=== PATIENT | male | born 1990 | race Two or more races ===

== ENCOUNTER 2017-01-02 13:02 | Outpatient (CLI) | payer MEDICAID | END 2017-01-02 13:03 | disposition home or self-care (01) | DX: Z20.2 Contact with and (suspected) exposure to infections with a predominantly sexual mode of transmission (principal) ==

== ENCOUNTER 2018-01-08 11:24 | Outpatient (CLI) | payer OTHER ==
[2018-01-08 18:24] LABS: ALBUMIN 4.5 g/dL (3.2-5.5); ALBUMIN/GLOBULIN RATIO 1.3 (1.0-2.2); ALKALINE PHOSPHATASE 66 IU/L (42-121); ALT ALANINE AMINOTRANSFERASE 18 IU/L (10-60); AST ASPARTATE AMINOTRANSFERASE 25 IU/L (10-42); BILIRUBIN,TOTAL 0.5 mg/dL (0.2-1.0); BUN - BLOOD UREA NITROGEN 16 mg/dL (6-20); CALCIUM 9.2 mg/dL (8.5-10.3); CARBON DIOXIDE - CO2 26 mmol/L (21-32); CHLORIDE 104 mmol/L (101-111); CHOL/HDL RATIO 3.2 (<5.0); CHOLESTEROL 183 mg/dL; CREATININE 0.7 mg/dL (0.6-1.2); GFR - MDRD 137 (>89); GLUCOSE 93 mg/dL (70-100); HDL CHOLESTEROL 57 mg/dL; LDL CHOLESTEROL,CALCULATED 117 mg/dL; LDL/HDL RATIO 2.1 (<3.6); SODIUM 137 mmol/L (135-145); VLDL CHOLESTEROL 9 mg/dL
== END 2018-01-08 11:25 | disposition home or self-care (01) ==
LOC: LAB.F 11:24
PROVIDERS: ATTEND Family Medicine
DX: E78.5 Hyperlipidemia, unspecified (principal)
CPT/HCPCS: 36415; 80053; 80061; 83721; 84443

== ENCOUNTER 2024-08-22 11:00 | Outpatient (CLI) | payer SELFPAY ==
--- NOTE | 2024-08-22 15:28 | XRAY Report ---
PROCEDURE: Chest 2V INDICATIONS: LEG EDEMA, BILATERAL TECHNIQUE: 2 views of the chest were acquired. COMPARISON: CT chest with contrast 08/22/2024 FINDINGS: Surgical changes and devices: Thoracic fusion hardware in place. Lungs and pleura: No pleural effusions or pneumothorax. Lungs are clear. Mediastinum: Mediastinal contours appear normal. Heart size is normal. Bones and chest wall: No suspicious bony lesions. Overlying soft tissues appear unremarkable. IMPRESSION: No acute cardiopulmonary process. Reviewed by: Flako Samayoa MD on 08/22/2024 3:27 PM PDT Approved by: Flako Samayoa MD on 08/22/2024 3:27 PM PDT Station ID: [id number]
== END 2024-08-22 11:15 | disposition home or self-care (01) ==
LOC: DI.N 11:00
PROVIDERS: ATTEND Physician Assistant
DX: R60.0 Localized edema (principal)

== ENCOUNTER 2024-08-22 11:15 | Outpatient (CLI) | payer SELFPAY ==
[2024-08-22 18:02] LABS: EOSINOPHILS # (AUTO) 0.1 10^3/uL (0.0-0.7); EOSINOPHILS % (AUTO) 1.5 %; HCT - HEMATOCRIT 38.5 % (42.0-52.0); HGB - HEMOGLOBIN 12.5 g/dL (14.0-18.0); LYMPHOCYTES # (AUTO) 0.8 10^3/uL (1.5-3.5); LYMPHOCYTES % (AUTO) 19.2 %; MEAN CORPUSCULAR HEMOGLOBIN 33.7 pg (27.0-31.0); MEAN CORPUSCULAR HGB CONC 32.5 g/dL (32.0-36.0); MEAN CORPUSCULAR VOLUME 103.8 fL (80.0-94.0); MEAN PLATELET VOLUME 11.1 fL (7.4-11.4); MONOCYTES # (AUTO) 0.4 10^3/uL (0.0-1.0); MONOCYTES % (AUTO) 10.2 %; NEUTROPHILS # (AUTO) 2.7 10^3/uL (1.5-6.6); NEUTROPHILS % (AUTO) 67.9 %; PLT - PLATELET COUNT 264 10^3/uL (130-450); RED BLOOD COUNT 3.71 10^6/uL (4.70-6.10); RED CELL DISTRIBUTION WIDTH 12.7 % (12.0-15.0)
[2024-08-22 18:23] LABS: ALBUMIN 4.4 g/dL (3.2-5.5); ALBUMIN/GLOBULIN RATIO 1.4 (1.0-2.2); BILIRUBIN,TOTAL 0.8 mg/dL (0.2-1.0); CREATININE 0.5 mg/dL (0.6-1.3); TOTAL PROTEIN 7.6 g/dL (6.4-8.9)
== END 2024-08-22 11:30 | disposition home or self-care (01) ==
LOC: LAB.N 11:15
PROVIDERS: ATTEND Physician Assistant
DX: R60.0 Localized edema (principal)
CPT/HCPCS: 36415; 80053; 83690; 83880; 85025

== ENCOUNTER 2024-08-22 13:02 | Outpatient (CLI) | payer SELFPAY | END 2024-08-22 23:59 | disposition critical access hospital (66) | LOC: EMS 13:02 | DX: R56.9 Unspecified convulsions (principal); F10.90 Alcohol use, unspecified, uncomplicated; R00.0 Tachycardia, unspecified | CPT/HCPCS: A0425; A0427 ==

== ENCOUNTER 2024-08-22 13:22 | Observation (INO) | payer SELFPAY ==
[2024-08-22] MEDS ORDERED: MIDAZOLAM 2 MG/2 ML VIAL ONE (13:32)
[2024-08-22] MEDS: MIDAZOLAM 10 MG/2 ML VIAL IVP STA ×2 (13:35→14:15)
--- NOTE | 2024-08-22 13:35 | ED Physician Documentation ---
PD HPI SEIZURE - Stated complaint Stated Complaint: SZ/WITHDRAWL ETOH - History obtained from History obtained from: EMS - History of Present Illness Timing - onset: Today PD PAST MEDICAL HISTORY - Past Medical History Musculoskeletal: Scoliosis, Chronic back pain - Past Surgical History Ortho: Spine surgery, Other - Present Medications Home Medications: Ambulatory Orders Medication Instructions Recorded Confirmed No Known Home Medications 08/22/24 08/22/24 - Allergies Allergies/Adverse Reactions: Allergies Allergy/AdvReac Type Severity Reaction Status Date / Time nickel [Nickel] Allergy Unknown Verified 08/22/24 13:56 PD ED PE NORMAL - Vitals Vital signs reviewed: Yes - General General: Other (intubated with symmetric lung sounds.). No: Well developed/nourished (moderately thin, low muscle mass. ) - HEENT HEENT: Other (swelling right occopital area, small dried blood on scalp. ) - Neck Neck: Supple, no meningeal sign, No adenopathy - Cardiac Cardiac: No: RRR (tachycardic but regular) - Respiratory Respiratory: Clear bilaterally - Abdomen Abdomen: Soft, Non distended - Derm Derm: Normal color, Warm and dry - Extremities Extremities: No deformity, No edema Results - Vitals Vitals: Vital Signs - 24 hr 08/22/24 08/22/24 08/22/24 13:22 13:26 13:36 Temperature 36.4 C L Heart Rate 105 H 108 H 120 H Respiratory 17 16 Rate Blood Pressure 126/65 126/65 O2 Saturation 99 100 08/22/24 08/22/24 08/22/24 13:57 14:06 14:16 Temperature 36.8 C Heart Rate 114 H 106 H 123 H Respiratory 17 14 15 Rate Blood Pressure 118/71 127/82 H O2 Saturation 99 100 100 08/22/24 08/22/24 08/22/24 14:20 15:00 15:30 Temperature 37 C Heart Rate 103 H 114 H 123 H Respiratory 14 16 18 Rate Blood Pressure 124/79 156/116 H 164/119 H O2 Saturation 100 100 100 Oxygen O2 Source Mechanical ventilator - EKG (time done) 1354 EKG releavant findings:: EKG personally interpreted by author of this note. Relevant findings are: Rate: Rate (enter#) (118), Tachy Rhythm: Sinus tachycardia Morrice: Normal Intervals: Prolonged QT Ischemia: Normal ST segments. No: ST elevation c/w ischemia, ST depression - Labs Labs: Laboratory Tests 08/22/24 08/22/24 08/22/24 13:37 13:37 13:37 WBC 5.7 RBC 3.45 L Hgb 12.0 L Hct 36.9 L MCV 107.0 H MCH 34.8 H MCHC 32.5 RDW 12.8 Plt Count 248 MPV 9.7 Neut # (Auto) 3.6 Lymph # (Auto) 1.6 [place] # (Auto) 0.4 Eos # (Auto) 0.0 Baso # (Auto) 0.0 Absolute Nucleated RBC 0.00 Nucleated RBC % 0.0 Sodium 135 Potassium 3.9 Chloride 102 Carbon Dioxide 8 L* Anion Gap 25.0 H BUN 7 Creatinine 0.8 Estimated GFR (MDRD) 112 Glucose 169 H Lactic Acid > 10.0 H* Calcium 8.5 Magnesium 1.9 Total Bilirubin 0.5 AST 331 H ALT 113 H Alkaline Phosphatase 166 H Total Creatine Kinase 102 Total Protein 6.8 Albumin 4.3 Globulin 2.5 Albumin/Globulin Ratio 1.7 Lipase 32 Vitamin B12 447 Folate 3.9 L TSH 4.61 Urine Color Urine Clarity Urine pH Ur Specific Miles Urine Protein Urine Glucose (UA) Urine Ketones Urine Occult Blood Urine Nitrite Urine Bilirubin Urine Urobilinogen Ur Leukocyte Esterase Urine RBC Urine WBC Ur Squamous Epith Cells Urine Bacteria Urine Casts Urine Mucus Ur Microscopic Review Urine Culture Comments Nasal Adenovirus (PCR) Nasal B. parapertussis DNA (PCR) Nasal Coronavir 229E PCR Nasal Coronavir HKU1 PCR Nasal Coronavir NL63 PCR Nasal Coronavir OC43 PCR Nasal Enterovir/Rhinovir PCR Nasal Influenza B PCR Nasal Influenza A PCR Nasal Parainfluen 1 PCR Nasal Parainfluen 2 PCR Nasal Parainfluen 3 PCR Nasal Parainfluen 4 PCR Nasal RSV (PCR) Nasal B.pertussis DNA PCR Nasal C.pneumoniae (PCR) Dandre Human Metapneumo PCR Nasal M.pneumoniae (PCR) Nasal SARS-CoV-2 (PCR) Salicylates < 1.5 Urine Opiates Screen Ur Buprenorphine Scrn Ur Oxycodone Screen Urine Methadone Screen Acetaminophen 2.5 Ur Barbiturates Screen Ur Tricyclics Screen Ur Phencyclidine Scrn Ur Amphetamine Screen U Methamphetamines Scrn U Benzodiazepines Scrn Urine Cocaine Screen U Cannabinoids Screen Ur Drug Screen Comment Ethyl Alcohol < 10.0 08/22/24 08/22/24 13:45 14:00 WBC RBC Hgb Hct MCV MCH MCHC RDW Plt Count MPV Neut # (Auto) Lymph # (Auto) [place] # (Auto) Eos # (Auto) Baso # (Auto) Absolute Nucleated RBC Nucleated RBC % Sodium Potassium Chloride Carbon Dioxide Anion Gap BUN Creatinine Estimated GFR (MDRD) Glucose Lactic Acid Calcium Magnesium Total Bilirubin AST ALT Alkaline Phosphatase Total Creatine Kinase Total Protein Albumin Globulin Albumin/Globulin Ratio Lipase Vitamin B12 Folate TSH Urine Color LIGHT YELLOW Urine Clarity HAZY Urine pH 5.5 Ur Specific Miles >=1.030 H Urine Protein 100 H Urine Glucose (UA) 100 H Urine Ketones NEGATIVE Urine Occult Blood MODERATE H Urine Nitrite NEGATIVE Urine Bilirubin NEGATIVE Urine Urobilinogen 0.2 (NORMAL) Ur Leukocyte Esterase NEGATIVE Urine RBC 0-5 Urine WBC 0-3 Ur Squamous Epith Cells FEW Squamous Urine Bacteria Few Urine Casts 0-2 WBC Casts Urine Mucus Few Strands Ur Microscopic Review INDICATED Urine Culture Comments NOT INDICATED Nasal Adenovirus (PCR) NOT DETECTED Nasal B. parapertussis DNA (PCR) NOT DETECTED Nasal Coronavir 229E PCR NOT DETECTED Nasal Coronavir HKU1 PCR NOT DETECTED Nasal Coronavir NL63 PCR NOT DETECTED Nasal Coronavir OC43 PCR NOT DETECTED Nasal Enterovir/Rhinovir PCR NOT DETECTED Nasal Influenza B PCR NOT DETECTED Nasal Influenza A PCR NOT DETECTED Nasal Parainfluen 1 PCR NOT DETECTED Nasal Parainfluen 2 PCR NOT DETECTED Nasal Parainfluen 3 PCR NOT DETECTED Nasal Parainfluen 4 PCR NOT DETECTED Nasal RSV (PCR) NOT DETECTED Nasal B.pertussis DNA PCR NOT DETECTED Nasal C.pneumoniae (PCR) NOT DETECTED Dandre Human Metapneumo PCR NOT DETECTED Nasal M.pneumoniae (PCR) NOT DETECTED Nasal SARS-CoV-2 (PCR) NOT DETECTED Salicylates Urine Opiates Screen NEGATIVE Ur Buprenorphine Scrn NEGATIVE Ur Oxycodone Screen NEGATIVE Urine Methadone Screen NEGATIVE Acetaminophen Ur Barbiturates Screen NEGATIVE Ur Tricyclics Screen NEGATIVE Ur Phencyclidine Scrn NEGATIVE Ur Amphetamine Screen NEGATIVE U Methamphetamines Scrn NEGATIVE U Benzodiazepines Scrn NEGATIVE Urine Cocaine Screen NEGATIVE U Cannabinoids Screen POSITIVE H Ur Drug Screen Comment CUTOFF CONC BELOW: Ethyl Alcohol - Rads (name of study) head CT Relevant Findings:: Prelim report reviewed (no acute findings, no ICH), EMP independent interpretation of test cervical spine CT Relevant Findings:: Prelim report reviewed (no fractures. ), EMP independent interpretation of test (no fractures, and C collar removed after viewing.) trunk CT Relevant Findings:: Prelim report reviewed (no acute injuries. ), EMP independent interpretation of test (ETT and NG tube in correct position. ) PD Medical Decision Making - ED course Complexity details: reviewed old records (no findings c/w prior seizures on prior [facility] encounters, nor inscript logs from pharmacy. ), reviewed results, considered differential (reportedly regular alcohol use and stopped 2 days ago. Being seen at [facility] and had seizure in parking lot (going in or out?) PA there states got limited history. NO seizure disorder prior.), other (EMS) ED course: The patient with a stated history to the PA provider at the [facility] of regular heavy alcohol use had stopped 2 days ago and was having shakiness. No history of seizures known. No regular medications. The patient had a seizure in the parking lot at the walk-in clinic. EMS was notified. Care was initiated supportively by the walk-in clinic staff. EMS states the patient was postictal and confused initially. Apparent injury on the back of the head. The patient had a subsequent seizure en route and was given Versed IV with cessation. Reported another seizure about 5 minutes later. He was given more benzodiazepine. At that point he did seem sedate and was hypoventilating per EMS. They opted to intubate him for airway protection and ventilation and given the repetitive seizures. The patient arrived here with still under sedation from the EMS medications. Subsequently did become active with agitation and appeared to be uncomfortable with the endotracheal tube. He had movement of all extremities but was not able to follow any direction. Initially with the injury to the head and the fall report as well as the repetitive seizure report, I elected not to consider extubation till at least after CT scans and further delineation of repetitive seizures. He was given Versed again IV and we will start a propofol drip would be appropriate for both seizures and sedation. He was still having movement trying to thrash and sit up and bucking at the vent. We added Versed drip to it. This seems to be keeping him calmer at this time. He did manage to get his CT imaging. No obvious intracranial hemorrhage nor fractures. Formal readings are still pending for chest and abdomen. No further seizures were noted and he had symmetric movement without any tonic- clonic apparent. He was given IV fluids as well. At this point he will still need treatment for withdrawal symptoms presumptively and the best option for now was to keep him intubated and sedated. I talked with the hospitalist team who are able to accept the patient for admission. He did require lots of eds for sedation, with propofol drip to the max initially, with added bnzos PRN, but then just opted to add Versed drip. Titrated up with still his movment and thrashing around at times. He still does not have any seizure acitvity, and is on meds that are for seizure (propopofl and verse). Gave Keppra as well, since did not know yet the cause of seizures, but presume alcoohol withdrawal. Covering with Keppra in case of post ocncussive seizure for subsequent one. At this point added vecuronium for better control of vent/airway and now feeling more certain of not having repeat seizures. - Critical Care Time(min): 65 Time Includes: Direct patient care, Reassess patient, Document care, Coordinate care, Medical consult Data interpretation: Labs, Pulse ox Procedures included in critical care time: Ventilator mgmt Procedures excluded from critical care time: EKG Departure - Departure Disposition: 66 [facility] DC/Xfer Clinical Impression: Acute repetitive seizure, Lactic acidosis Alcohol withdrawal Qualifiers: Complication of substance-induced condition: with unspecified complication Qualified Code(s): F10.939 - Alcohol use, unspecified with withdrawal, unspecified Head contusion Qualifiers: Encounter type: initial encounter Contusion of head detail: other part of head Qualified Code(s): S00.83XA - Contusion of other part of head, initial encounter Condition: Stable Record reviewed to determine appropriate education?: Yes Discharge Date/Time: 08/22/24 16:18
[2024-08-22] MEDS ORDERED: levETIRAcetam 500 MG/5 ML VIAL IVP STA (13:41)
[2024-08-22] MEDS: PROPOFOL 1000 MG/100 ML 1,000 MG/100 ML BOTTLE IV STA (13:43)
[2024-08-22 13:44] LABS: BASOPHILS % (AUTO) 0.5 %; EOSINOPHILS % (AUTO) 0.4 %; HCT - HEMATOCRIT 36.9 % (42.0-52.0); LYMPHOCYTES # (AUTO) 1.6 10^3/uL (1.5-3.5); LYMPHOCYTES % (AUTO) 28.4 %; MEAN CORPUSCULAR HEMOGLOBIN 34.8 pg (27.0-31.0); MEAN CORPUSCULAR HGB CONC 32.5 g/dL (32.0-36.0); MEAN PLATELET VOLUME 9.7 fL (7.4-11.4); MONOCYTES # (AUTO) 0.4 10^3/uL (0.0-1.0); MONOCYTES % (AUTO) 6.7 %; NEUTROPHILS # (AUTO) 3.6 10^3/uL (1.5-6.6); NEUTROPHILS % (AUTO) 62.9 %; PLT - PLATELET COUNT 248 10^3/uL (130-450); RED BLOOD COUNT 3.45 10^6/uL (4.70-6.10); RED CELL DISTRIBUTION WIDTH 12.8 % (12.0-15.0); WHITE BLOOD COUNT 5.7 x10^3/uL (4.8-10.8)
[2024-08-22 13:58] LABS: ACETAMINOPHEN 2.5 ug/mL; CK- CREATINE KINASE 102 IU/L (30-223); ETOH - ETHANOL < 10.0 mg/dL; LIPASE 32 U/L (11-82); MAGNESIUM 1.9 mg/dL (1.7-2.3)
[2024-08-22] MEDS: SODIUM CHLORIDE 0.9% 1,000 ML IV STA (14:00)
[2024-08-22 14:02] LABS: SALICYLATE < 1.5 mg/dL
[2024-08-22] MEDS: MIDAZOLAM 10 MG/2 ML VIAL IVP PRN (14:02)
[2024-08-22] MEDS ORDERED: iohexoL-300 100 ML VIAL ONE (14:02)
[2024-08-22 14:03] LABS: ALBUMIN 4.3 g/dL (3.2-5.5); ALBUMIN/GLOBULIN RATIO 1.7 (1.0-2.2); ALKALINE PHOSPHATASE 166 IU/L (42-121); ALT ALANINE AMINOTRANSFERASE 113 IU/L (10-60); AST ASPARTATE AMINOTRANSFERASE 331 IU/L (10-42); BILIRUBIN,TOTAL 0.5 mg/dL (0.2-1.0); BUN - BLOOD UREA NITROGEN 7 mg/dL (6-20); CALCIUM 8.5 mg/dL (8.5-10.3); CARBON DIOXIDE - CO2 8 mmol/L (21-32); CHLORIDE 102 mmol/L (101-111); CREATININE 0.8 mg/dL (0.6-1.3); GFR - MDRD 112 (>89); GLUCOSE 169 mg/dL (74-104); POTASSIUM 3.9 mmol/L (3.5-4.5); SODIUM 135 mmol/L (135-145); TOTAL PROTEIN 6.8 g/dL (6.4-8.9)
[2024-08-22 14:04] LABS: BILIRUBIN,URINE NEGATIVE (NEGATIVE); GLUCOSE, URINE (UA) 100 mg/dL (NEGATIVE); KETONES,URINE (UA) NEGATIVE (NEGATIVE); LEUKOCYTE ESTERASE, URINE NEGATIVE (NEGATIVE); NITRITE,URINE NEGATIVE (NEGATIVE); OCCULT BLOOD,URINE MODERATE (NEGATIVE); PH,URINE 5.5 PH (5.0-7.5); PROTEIN,URINE 100 mg/dL (NEGATIVE); UROBILINOGEN,URINE 0.2 (NORMAL) E.U./dL (NORMAL)
[2024-08-22] MEDS: levETIRAcetam INJ 1,000 MG in SODIUM CHLORIDE 0.9% 100ML 100 ML IV STA (14:04)
[2024-08-22 14:11] LABS: THYROID STIMULATING HORMONE 4.61 uIU/mL (0.34-5.60)
[2024-08-22 14:13] LABS: CLARITY,URINE HAZY (CLEAR)
[2024-08-22 14:21] LABS: AMPHETAMINE SCREEN,URINE NEGATIVE (NEGATIVE); BARBITURATE SCREEN,UR NEGATIVE (NEGATIVE); BENZODIAZEPINES SCREEN, URINE NEGATIVE (NEGATIVE); BUPRENORPHINE SCREEN, URINE NEGATIVE (NEGATIVE); COCAINE SCREEN URINE NEGATIVE (NEGATIVE); METHADONE SCREEN, URINE NEGATIVE (NEGATIVE); METHAMPHETAMINES SCREEN, URINE NEGATIVE (NEGATIVE); OPIATE SCREEN, URINE NEGATIVE (NEGATIVE); OXYCODONE SCREEN, URINE NEGATIVE (NEGATIVE); THC CANNABINOID SCREEN, URINE POSITIVE (NEGATIVE); TRICYCLIC ANTIDEPRESSANT,URINE NEGATIVE (NEGATIVE); WBC,URINE 0-3 /HPF (0-3)
[2024-08-22 14:22] LABS: BACTERIA,URINE Few /HPF (None Seen); MUCUS,URINE Few Strands; RBC,URINE 0-5 /HPF (0-5); SQUAMOUS EPITHELIAL CELL,UR FEW Squamous (<= Few)
[2024-08-22] MEDS: diazePAM INJ 5 MG/ML SYRINGE IVP STA (14:31)
[2024-08-22] MEDS: MIDAZOLAM DRIP 50 MG/50 ML 50 MG/50 ML BAG IV SCH (14:32)
[2024-08-22] MEDS: VECURONIUM 10 MG VIAL IVP STA (14:55)
[2024-08-22 15:05] LABS: B. PARAPERTUSSIS- RESP PCR PAN NOT DETECTED; B. PERTUSSIS- RESP PCR PANEL NOT DETECTED; C. PNEUMONIAE- RESP PCR PANEL NOT DETECTED; CORONAVIRUS 229E-RESP PCR NOT DETECTED; CORONAVIRUS HKU1-RESP PCR NOT DETECTED; CORONAVIRUS NL63-RESP PCR NOT DETECTED; CORONAVIRUS OC43-RESP PCR NOT DETECTED; HUMAN METAPNEUMOVIRUS NOT DETECTED; INFLUENZA A- RESP PCR PANEL NOT DETECTED; INFLUENZA B - RESP PCR PANEL NOT DETECTED; M. PNEUMONIAE- RESP PCR PANEL NOT DETECTED; PARAINFLUENZA VIRUS 1 NOT DETECTED; PARAINFLUENZA VIRUS 2 NOT DETECTED; PARAINFLUENZA VIRUS 3 NOT DETECTED; PARAINFLUENZA VIRUS 4 NOT DETECTED; RHINOVIRUS/ENTEROVIRUS NOT DETECTED; RSV- RESP PCR PANEL NOT DETECTED; SARS-CoV-2 -RESP PCR PANEL NOT DETECTED
--- NOTE | 2024-08-22 15:16 | CT Report ---
PROCEDURE: Head WO INDICATIONS: seizure, fall, altered LOC TECHNIQUE: Noncontrast 4.5 mm thick angled axial sections acquired from the foramen magnum to the vertex. For r adiation dose reduction, the following was used: automated exposure control, adjustment of mA and/or kV according to patient size. COMPARISON: None. FINDINGS: Image quality: Excellent. CSF spaces: Basal cisterns are patent. No extra-axial fluid collections. Ventricles are normal in size and shape. Brain: No midline shift. No intracranial masses or hemorrhage. Fitzgerald-white matter interface is norm al. Skull and face: Left parietal subgaleal hematoma. Calvarium and visualized facial bones are intact, without suspicious lesions. Sinuses: Visualized sinuses and mastoids are clear. IMPRESSION: Left parietal subgaleal hematoma. No acute intracranial process. Reviewed by: Landon Austin MD on 08/22/2024 3:14 PM PDT Approved by: Landon Austin MD on 08/22/2024 3:14 PM PDT Station ID: [id number]
[2024-08-22] MEDS ORDERED: ONDANSETRON 4 MG/2 ML VIAL IVP PRN (15:35)
[2024-08-22] MEDS ORDERED: ALBUTEROL NEB 2.5 MG/3 ML INH PRN (15:35)
[2024-08-22] MEDS ORDERED: ONDANSETRON ODT 4 MG TABLET TL PRN (15:35)
[2024-08-22] MEDS ORDERED: SODIUM CHLORIDE FLUSH 0.9% 10 ML SYRINGE IVP PRN (15:35)
--- NOTE | 2024-08-22 15:43 | CT Report ---
PROCEDURE: Cervical Spine WO INDICATIONS: seizure, fall, altered LOC TECHNIQUE: Noncontrast 3 mm thick sections acquired from the skull base to the T4 level. Sagittal and coronal r eformats were then constructed. For radiation dose reduction, the following was used: automated exp osure control, adjustment of mA and/or kV according to patient size. COMPARISON: None. FINDINGS: Image quality: Excellent. Bones: No fractures or dislocations. Visualized superior ribs are intact. Soft tissues: Prevertebral soft tissues are normal in thickness. No paravertebral hematomas. No ap ical pneumothoraces. ET tube and orogastric tube IMPRESSION: No acute, displaced fracture or traumatic subluxation. Reviewed by: Landon Austin MD on 08/22/2024 3:42 PM PDT Approved by: Landon Austin MD on 08/22/2024 3:42 PM PDT Station ID: [id number]
--- NOTE | 2024-08-22 15:47 | CT Report ---
PROCEDURE: Abdomen/Pelvis W INDICATIONS: seizure, fall CONTRAST: 100ml [id number] TECHNIQUE: After the administration of intravenous contrast, a CT scan of the abdomen and pelvis was performed. Images were recorded and evaluated at appropriate window settings. Reformats: coronal and sagittal. F or radiation dose reduction, the following was used: automated exposure control, adjustment of mA and /or kV according to patient size. COMPARISON: None. FINDINGS: Image quality: Diagnostic. Lower chest: Unremarkable. Liver: Hepatomegaly, moderate diffuse hepatic steatosis. Gallbladder: No radiopaque stones or wall thickening. Biliary tree: No intrahepatic or extrahepatic dilation, accounting for age. Spleen: No splenomegaly. Pancreas: No pancreatic ductal dilation. Adrenals: No adrenal nodule. Kidneys and ureters: No hydronephrosis. No renal cystic lesion which requires follow up. No solid mas s. Stomach, bowel and peritoneum: No gastric or small bowel dilation. No abnormal wall thickening. No pa thologic free fluid. Lymph nodes: No central or retroperitoneal adenopathy. Vessels: No infrarenal aortic aneurysm. Patent portal vein. PELVIS Reproductive organs: Unremarkable. Bladder: A [place] catheter is in place. There is mild diffuse bladder wall thickening. Pelvic lymph nodes: No pelvic adenopathy by size criteria. Bones: Thoracic rods with the lowest effective vertebral body being L1, with extensive associated met allic artifact. Other: No significant ventral or inguinal hernia. IMPRESSION: 1. Hepatomegaly, moderate diffuse hepatic steatosis. 2. [place] catheter in place. Mild diffuse bladder wall thickening. 3. No acute abdominal process identified. Reviewed by: Landon Austin MD on 08/22/2024 3:46 PM PDT Approved by: Landon Austin MD on 08/22/2024 3:46 PM PDT Station ID: [id number]
--- NOTE | 2024-08-22 15:53 | CT Report ---
PROCEDURE: Chest W INDICATIONS: seizure fall CONTRAST: 100ml [id number] TECHNIQUE: After the administration of intravenous contrast, a CT scan of the chest was performed. Images were recorded and evaluated at appropriate window settings. Reformats: axial MIP of the chest, coronal and sagittal. For radiation dose reduction, the following was used: automated exposure control, adjustme nt of mA and/or kV according to patient size. COMPARISON: CT abdomen and pelvis from today. FINDINGS: Image quality: Diagnostic. Chest wall and lower neck: No thyroid nodule which requires sonographic follow up. No breast mass. No axillary or supraclavicular adenopathy by size. Lungs and pleura: No consolidation. No pleural effusions. No pneumothorax. No suspicious pulmonary n odules which require follow up. Mediastinum: Heart size is normal. No pericardial effusion. No large vessel abnormality. No mediastin al adenopathy by size criteria. An ET tube and NG tube are in satisfactory position. Bones: No aggressive osseous abnormality. Bilateral posterior lateral oswaldo and pedicle screw fixation spanning from T7 through L1. No evidence of hardware failure or loosening.. Upper Abdomen: Hepatomegaly, moderate diffuse hepatic steatosis. IMPRESSION: 1. ET tube and orogastric tube in satisfactory position. 2. No acute pulmonary process. 3. Hepatomegaly, diffuse hepatic steatosis. Reviewed by: Landon Austin MD on 08/22/2024 3:52 PM PDT Approved by: Landon Austin MD on 08/22/2024 3:52 PM PDT Station ID: [id number]
--- NOTE | 2024-08-22 15:53 | HISTORY & PHYSICAL EXAMINATION ---
Chief Complaint - Chief Complaint Chief Complaint: seizure History of Present Illness - Admitted From Admitted From:: PCP parking lot via EMS - History Obtained From Records Reviewed: [facility] and [facility] History obtained from: Dr Stewart and mom Exam Limitations: intubated on propofol - History of Present Illness HPI Comment/Other: This gentleman was seen in the clinic for leg edema. 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 Standing on his feet. Legs seemed a little bit more edematous and achy so he was going to go to the walk-in clinic. The only other new addition to his history is that of new drinking. His previous clinic records state that the patient never really drank on a regular basis. But with the walk-in clinic visit today he has "been drinking a lot of alcohol recently, 4 or more 8% white claws daily". Started during covid and did it for 2 years. Mom feels he started getting depressed from his auditory issues, learning disability, chronic back pain, and being on disability so started drinking instead of pot. Also broke up with his girlfriend. Maximilianed colleen borges he felt addicted to alcohol and went to first AA meeting last week. Definite change for the better. 11 days today since his last drink. First days really hard and then he got better. Was to go to AA today. Has called suicide hot line in the past few months due to depression. After being seen he walked out into the parking lot and had a witnessed seizure. He continued to have seizures. Given Ativan. And he was intubated in the field for airway protection. He had an abrasion on the parietal side of his left head. C-collar was placed and he received Versed, etomidate, succinylch oline and fentanyl in the field. In the emergency room he was estimated 5 foot 7 at 72 kg with a temperature of 36.4, heart rate 105, blood pressure 126/65. Respirations 17. 99% saturating on a mechanical ventilator and not responsive due to sedation. He was found to have a laceration on the back of his scalp. I reviewed his clinic chart was reviewed and he was found to have a history of scoliosis with chronic back pain, and had scoliosis surgery at an unknown level. He has also had an ORIF of the left collarbone in the past. He does not have a history of alcohol withdrawal. Workup in the emergency room included a CBC that had a white cell count of 5.7. Hemoglobin 12.0. His MCV is 107. Chemistries had a carbon dioxide of 8. Anion gap 25. BUN 7, creatinine 0.8. At this point I am attributing that carbon dioxide level to over ventilation. His glucose is 169. Lactic acid greater than 10 and attribute that to seizures and alcoholic liver disease. AST is 331, ALT 113, alk phos 166. PT and INR has not been done yet. Folate is 3.9. TSH 4.61. Head CT was of excellent quality. His cisterns were patent. No extra-axial fluid collections. Ventricles normal in size. No midline shift. No intracranial masses or hemorrhage. He did have a left parietal subgaleal hematoma. The bones that were visualized were intact without suspicious lesions. Toxicology was negative except for cannabinoids. Ethyl alcohol was less than 10. Acetaminophen 2.5. Salicylates less than 1.5. Urinalysis has specific gravity greater than 1.030. He had glucosuria proteinuria moderate occult blood. Few squamous cells. Coarse granular casts and white cell casts Viral PCR panel negative for all viruses. No blood gas or chest x-ray has been done. The patient has been kept intubated. I discussed the case with Dr. Stewart Will place the patient in observation. Although he has intubation with ET tube in place to protect his airway, I would anticipate that he will wake up, and I will be able to extubate him quickly. At this time seizure is due to alcohol withdrawal and I History - Past Medical History Cardiovascular: reports: High cholesterol Neuro: reports: Other (hx of arm tingling, and Chiari Type 1 (MRI 02/2016 w plaque L, cerebellar tosillar ectopia to 1 cm on R, small C spine syrinx)) GI: reports: Cirrhosis (??) : reports: Other ( exposure to STD, all testing negative) HEENT: reports: Other ( cataract removal) Psych: reports: Depression, Anxiety Musculoskeletal: reports: Scoliosis, Chronic back pain ( has been seen by [facility] pain clinic), Other ( Recurrent dislocation left shoulder, arthrodesis, paresthesia upper limb) Derm: reports: Other (rash with nickel) MRSA Hx?: No Other Past Medical History: learning disability - Past Surgical History Ortho: reports: Spine surgery ( spinal cord fusion T7-T11 August 2009), Other - Family & Social History Family History Comment/Other: none. He is adopted Living arrangement: At home Living Situation: Alone Social History Notes: person authorized to receive information is his mother, Charley. because of chronic back pain, oswaldo placement, left shoulder pain he has had surgery, physical therapy and he has. On disability and has [employer] business. Lives in own apt in [place], was living with and she broke up 09/2023 with him bc of alcohol. He has never smoked. Up until today his alcohol history was negative for any regular drinking or abuse. He has no history of recreational substance abuse other than the use of cannabis. - Substance History Use: Uses substance without health or social issues: NONE Abuse: Recurrent use of substance despite neg consequences: NONE Dependence: Experiences withdrawal or developed tolerances: NONE Tobacco Details: Other ( Because of THC usage was not a candidate for narcotics with pain clinic) - POLST Patient has POLST: No POLST Status: Full Code Meds/Allgy - Home Medications Home Medications: Ambulatory Orders Medication Instructions Recorded Confirmed No Known Home Medications 08/22/24 08/22/24 - Allergies Allergies/Adverse Reactions: Allergies Allergy/AdvReac Type Severity Reaction Status Date / Time nickel [Nickel] Allergy Unknown Verified 08/22/24 13:56 Review of Systems - Other Findings Other Findings: unable to do Exam - Vital Signs Reviewed Vital Signs: Yes Vital Signs: Vital Signs x48h Temp Pulse Resp BP Pulse Ox 08/22/24 14:20 103 H 14 124/79 100 08/22/24 14:16 123 H 15 127/82 H 100 08/22/24 14:06 106 H 14 118/71 100 08/22/24 13:57 36.8 C 114 H 17 99 08/22/24 13:36 120 H 08/22/24 13:26 108 H 16 126/65 100 08/22/24 13:22 36.4 C L 105 H 17 126/65 99 - Physical Exam General Appearance: positive: No acute distress (intubated on propofol, jerking and pulling at restraints, not responding to commands), Other ( C-spine stability collar in place) Eyes Bilateral: positive: PERRL, EOMI ENT: positive: No signs of dehydration, Other (bruised left scalp) Neck: positive: No JVD. negative: Stiff neck Respiratory: positive: No respiratory distress. negative: Wheezes, Rales, Rhonchi Cardiovascular: positive: Regular rate & rhythm Peripheral Pulses: positive: 1+ Abdomen: positive: No organomegaly, Nml bowel sounds, No distention Skin: positive: Warm, Dry Conclusion/Plan - Problem List (1) Acute repetitive seizure Conclusion/Plan: At this time my working diagnosis is alcohol withdrawal seizures. Per up-to-d ate:Withdrawal-associated seizures are generalized tonic-clonic convulsions that usually occur within 12 to 48 hours after the last alcoholic drink but reportedly sometimes occur after as few as two hours of abstinence. The seizures occur predominantly in patients with a long history of heavy alcohol use, as evidenced by their typical onset during the fourth and fifth decades of life. Withdrawal seizures are usually singular or occur as a brief flurry of seizures over a short period. Recurrent or prolonged seizures or status epilepticus are not typical of withdrawal-associated seizures and should prompt an investigation into possible structural or infectious etiologies, generally guided by the findings of cranial computed tomography (CT), magnetic resonance imaging (MRI), and/or lumbar puncture. Has already had a CT of the head and has been identified as having a subgaleal hematoma. But no intrinsic lesions to the brain.Benzodiazepines, phenobarbital, and propofol are recommended in that order to treat status epilepticus while investigations proceed. Several studies have demonstrated that phenytoin is ineffective in the treatment of alcohol withdrawal seizures, and the drug should not be used for this purpose. Gabapentin is used in alcohol use disorder, it is not generally recommended and seizure disorder. While some authors use other anticonvulsants such as carbamazepine, valproate, and levetiracetam in the therapy of alcohol use disorder and withdrawal, the role of these medications in alcohol withdrawal-related seizures is incompletely evaluated and therefore cannot be recommended. Although seemingly benign, alcohol withdrawal seizures left untreated progress t o delirium tremens (DT) in nearly one-third of patients Plan: *Place in observation status as we anticipate is status epilepticus to resolve *I will Use as needed Ativan to control his seizures *I am opting not to do Keppra at this time *Treat alcohol withdrawal as below * I anticipate that his status epilepticus will resolve within a few hours, followed by resumption of the ability to follow commands, and thereby allowing me to extubate him. If he is alert, following commands, and has no deficits, he may be able to be discharged tomorrow if he does not go into severe alcohol withdrawal. * Check his blood gas and chest x-ray and adjust ventilator settings as needed * contact his family for a broader history * I reviewed the CT of the spine and it is negative for fracture so I will take this C-spine collar off * renew soft restraint orders from ER until extubated (2) Alcohol withdrawal Conclusion/Plan: I will investigate through his family and any other charts how severe his alcohol abuse is. In the past he was noted not to be a drinker at all. As such the history obtained in the emergency room where he is drinking several white claw drinks a day is new. His CBC and liver enzymes correlate with moderate abuse and alcohol hepatitis, as well as moderately severe macrocytosis. Plan: IV banana bag with thiamine, folate, magnesium and then switch to p.o. when I have extubated him Check INR. If his INR is prolonged I will suspect cirrhosis rather than acute alcoholic hepatitis Check ultrasound of the liver (which will also get me secondary information of ascites if it is present) I will hold off on hepatitis panel at this time. and reviewing his clinic chart, his liver enzymes were normal in December 2017. Qualifiers: Complication of substance-induced condition: with unspecified complication Qualified Code(s): F10.939 - Alcohol use, unspecified with withdrawal, unspecified (3) Head contusion Conclusion/Plan: at this time it is a simple subgaleal hematoma. No brain lesions. If his INR is prolonged, after review, I would repeat a CT of the head if his alertness does not return to baseline level. He would be at risk for a subdural hematoma. Qualifiers: Encounter type: initial encounter Contusion of head detail: other part of head Qualified Code(s): S00.83XA - Contusion of other part of head, initial encounter (4) Lactic acidosis Conclusion/Plan: In looking for infection:Urinalysis indicates no UTI. But he has many casts. Chest x-ray has not been done. I will order chest x-ray and evaluate for possible pneumonia abdomen is not described as rigid. He has no fever. He does not have an elevated white cell count. Other causes of lactic acidosis would include dehydration, liver disease, and seizure. He has 2 of the 3. Plan: Chest x-ray as above. Repeat lactic acid after fluid resuscitation. (5) Learning difficulty due to cognitive limitations Conclusion/Plan: mom warns us to be patient with him when he is verbal. slow to understand but once he does, he does well. don't repeat and repeat because it frustrates him. It just takes a while to process. - Lab Results Lab results reviewed: Yes Fish Bones: 08/22/24 13:37 08/22/24 13:37 - Diagnostic Imaging Results Diagnostic Imaging Results: positive: Final report reviewed - EKG Results EKG Interpreted Independently: No Core Measures - Anticipated LOS I expect patient to be DC'd or transferred within 96 hours.: Yes - DVT/VTE - Prophylaxis VTE/DVT Device ordered at admit?: Yes
[2024-08-22] MEDS: iohexoL-300 100 ML VIAL IVP ONE (16:35)
--- NOTE | 2024-08-22 16:38 | XRAY Report ---
PROCEDURE: Chest 1V INDICATIONS: intubated w lactic acidosis TECHNIQUE: One view of the chest was acquired. COMPARISON: Chest radiograph on the same day. FINDINGS: Surgical changes and devices: ET tube tip is approximately 6.9 cm above the yoli. NG tube tip is b elow the left hemidiaphragm and is in the expected location of stomach lumen. Post fusion changes are noted in mid to lower thoracic spine. Lungs and pleura: No pleural effusions or pneumothorax. Lungs are clear. Mediastinum: Mediastinal contours appear normal. Heart size is normal. Bones and chest wall: No suspicious bony lesions. Overlying soft tissues appear unremarkable. IMPRESSION: Tube and line positions as above. No focal infiltrate, pleural effusion or pneumothorax. Reviewed by: Remington Bain MD on 08/22/2024 4:37 PM PDT Approved by: Remington Bain MD on 08/22/2024 4:37 PM PDT Station ID: [id number]
[2024-08-22] MEDS ORDERED: MORPHINE 2 MG/ML CARPUJECT IVP PRN (16:39)
[2024-08-22] MEDS: HYDROmorphone 0.5 MG/0.5 ML SYRINGE IVP PRN (16:45)
[2024-08-22] MEDS: SODIUM CHLORIDE FLUSH 0.9% 10 ML SYRINGE IVP SCH (17:00)
[2024-08-22 17:25] LABS: ABG PCO2 30 mmHg (34-45); ABG PH 7.41 (7.35-7.45)
[2024-08-22 17:26] LABS: ABG BASE EXCESS -5.4 mmol/L (-2.0-3.0); ABG HCO3 18.2 mmol/L (22.0-26.0); ABG OXYGEN SATURATION 99 % (94-98); ABG TCO2 19.1 MMOL/L (21.0-29.0); ALLEN TEST POSITIVE
[2024-08-22 17:27] LABS: ABG MODE OF VENTILATION SIMV; ABG RESPIRATORY RATE 16 b/min
[2024-08-22 17:29] LABS: ABG PO2 267 mmHg (80-100)
[2024-08-22] MEDS ORDERED: SODIUM CHLORIDE 0.9% 500 ML IV PRN (18:10)
[2024-08-22] MEDS: PROPOFOL 1000 MG/100 ML 1,000 MG/100 ML BOTTLE IV SCH (18:24)
[2024-08-22] MEDS: PANTOPRAZOLE 40 MG VIAL IVP SCH (18:30)
[2024-08-22] MEDS: CHLORHEXIDINE GLUCONATE 15 ML UDC PO SCH (20:19)
[2024-08-23 05:13] LABS: BASOPHILS % (AUTO) 0.4 %; EOSINOPHILS % (AUTO) 0.5 %; HCT - HEMATOCRIT 32.1 % (42.0-52.0); HGB - HEMOGLOBIN 10.9 g/dL (14.0-18.0); LYMPHOCYTES # (AUTO) 1.3 10^3/uL (1.5-3.5); LYMPHOCYTES % (AUTO) 22.9 %; MEAN CORPUSCULAR HEMOGLOBIN 34.8 pg (27.0-31.0); MEAN CORPUSCULAR VOLUME 102.6 fL (80.0-94.0); MEAN PLATELET VOLUME 9.9 fL (7.4-11.4); MONOCYTES # (AUTO) 0.5 10^3/uL (0.0-1.0); MONOCYTES % (AUTO) 8.7 %; NEUTROPHILS # (AUTO) 3.7 10^3/uL (1.5-6.6); NEUTROPHILS % (AUTO) 67.3 %; PLT - PLATELET COUNT 206 10^3/uL (130-450); RED BLOOD COUNT 3.13 10^6/uL (4.70-6.10); RED CELL DISTRIBUTION WIDTH 12.9 % (12.0-15.0); WHITE BLOOD COUNT 5.5 x10^3/uL (4.8-10.8)
[2024-08-23 05:15] LABS: CALCIUM, IONIZED 1.08 mmol/L (1.15-1.33); VBG PH 7.441 (7.31-7.41)
[2024-08-23 05:31] LABS: MAGNESIUM 1.8 mg/dL (1.7-2.3); PHOSPHORUS 2.6 mg/dL (2.5-5.0)
[2024-08-23 05:33] LABS: ALBUMIN 3.6 g/dL (3.2-5.5); BILIRUBIN,DIRECT 0.5 mg/dL (0.03-0.18); BILIRUBIN,TOTAL 1.2 mg/dL (0.2-1.0); CALCIUM 8.3 mg/dL (8.5-10.3); CREATININE 0.5 mg/dL (0.6-1.3); POTASSIUM 2.7 mmol/L (3.5-4.5); TOTAL PROTEIN 5.8 g/dL (6.4-8.9)
[2024-08-23 05:37] LABS: PT - PROTHROMBIN TIME 10.7 secs (9.9-12.6)
[2024-08-23] MEDS: MAGNESIUM SULFATE 2 GRAM 2 GM/50 ML BAG IV ONE (06:28)
[2024-08-23] MEDS: POTASSIUM CHLOR 10 MEQ/100 ML 10 MEQ/100 ML BAG IV SCH (06:29)
[2024-08-23] MEDS: CALCIUM GLUC 1,000MG/50ML-NACL 1,000 MG/50 ML BAG IV ONE (07:46)
[2024-08-23] MEDS ORDERED: ACETAMINOPHEN 325 MG TABLET PO PRN (11:06)
--- NOTE | 2024-08-23 11:56 | PHARMACY PROGRESS NOTE ---
- Best Possible Medication History Admit Date and Time: 08/22/24 1535 Processed by: Pharmacy Medications reviewed in ED?: Yes Medication History completed: Yes Patient Interview: Completed Secondary Source(s): Pharmacy records, Insurance records As the person ultimately responsible for medication therapy, providers are able to order a medication from an existing home medication list in [facility] via the "Reconcile Routine" prior to Confirmation of that medication by technical support manager. Such practice is discouraged except when the physician, in their clinical judgment, deems that a medical need exists for a medication without regard to previous use.
[2024-08-23] MEDS ORDERED: MULTIVITAMIN 10 ML, THIAMINE INJ 100 MG, MAGNESIUM SULFATE 2 GM, FOLIC ACID INJ 1 MG in... IV SCH (12:00)
[2024-08-23 12:11] VITALS: BP 139/92; O2SAT 96
[2024-08-23] MEDS: THIAMINE 100 MG TABLET PO SCH (12:49)
[2024-08-23] MEDS: PRENATAL VITAMIN TABLET PO SCH (12:50)
[2024-08-23] MEDS: PANTOPRAZOLE 40 MG TABLET PO SCH (12:50)
--- NOTE | 2024-08-23 14:02 | Discharge Plan ---
Discharge Plan Problem Reviewed?: Yes Disposition: Home, Self Care Condition: Stable Prescriptions: Pnv No.121/Iron/Folic Acid [ Multivitamin Tablet] 1 each PO DAILY #30 tablet Thiamine [Vitamin B-1] 100 mg PO DAILY #30 tab Diet: Regular Activity Restrictions: Activity as Tolerated Shower Restrictions: No Driving Restrictions: Yes (no driving for 6 months) Health Concerns: You presented to your clinic with complaints of leg pain and leg edema. 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 After being seen in the clinic, you went to the parking lot and began having recurrent seizures. Ambulance was called and they had to protect yourr airway and to let you breathe so you were emergently intubated. Once you came to our ER, you have not had any further seizures. You are placed in observation status overnight and you are able to come off the ventilator this morning. You are following commands, ambulating in the room, eating. You do not have a long history of alcohol abuse. You started drinking 2 years ago during COVID. You then went cold turkey about 14 days ago. You are able to stay sober for 10 days and went back to drinking 4 days ago. You have started going to AA and were scheduled to see a second AA visit on the day of admission. He would not had a drink in a day. We think it was the alcohol withdrawal but caused you to have seizures. Plan of Treatment: 1. Please establish yourself with a primary care provider. If you cannot, continue to see the walk-in clinic. 2. Because you have new onset seizures, you cannot drive for 6 months. You may need to have clearance from a primary care provider or neurologist to drive again. Hence the important need for you to establish yourself with a primary care provider so you can be referred to neurology. 3. Please stop drinking. Continue to see AA. As part of your recovery we recommend that you take thiamine 100 mg a day, and a vitamin which has a lot of B12's in it. Take those 2 vitamins for the next 6 months. 4. Your liver enzymes indicate that you may have early cirrhosis and alcoholic hepatitis. If you stop drinking, your liver can recover over the next few years. But you must stop drinking any forms of alcohol at all. Care Goals: To stop drinking and have no recurrence of seizures with withdrawal Assessment: patient is alert, oriented to person, place, time and situation. He does not remember anything from this morning but on requestioning, he does repeat the same data. He does have a learning disability but was able to reiterate the answers to my questions. His mom is with him, and all of her questions were answered as well. No Smoking: If you smoke, Please STOP! Call for help.
[2024-08-23 14:08] LABS: CALCIUM, IONIZED 1.12 mmol/L (1.15-1.33); VBG PH 7.425 (7.31-7.41)
[2024-08-23 14:19] LABS: MAGNESIUM 1.8 mg/dL (1.7-2.3); POTASSIUM 3.6 mmol/L (3.5-4.5)
--- NOTE | 2024-08-23 14:43 | DISCHARGE SUMMARY ---
"Discharge Summary Admit Date: 08/22/24 Discharge Date: 08/23/24 Discharging Provider: Renee Pritchett MD Primary Care Provider: Patient needs a PCP and has been given list Code Status: Attempt Resuscitation Condition at Discharge: Stable Discharge Disposition: 01 Home, Self Care - DIAGNOSES Discharge Diagnoses with Status of Each Condition: 1. Acute repetitive seizure most likely secondary to alcohol withdrawal 2. Alcohol withdrawal 3. Head contusion 4. Lactic acidosis 5. Learning difficulty due to cognitive limitations - HPI History of Present Illness: Please see detailed dictated history and physical. He is a 34-year-old white male that started abusing alcohol 2 years ago during COVID. - CONSULTS | PROCEDURES Procedures: Head CT had a left parietal subgaleal hematoma. No acute intracranial process Cervical spine CT had no acute displaced fracture or traumatic subluxation Abdomen pelvis CT had hepatomegaly with moderate diffuse hepatic steatosis. A F oley catheter in place. No acute abdominal process identified. A chest CT had no acute pulmonary process. Hepatomegaly and diffuse hepatic steatosis was seen on the lower cuts. Chest x-ray after intubation had to be in line positions in place. No focal infiltrate, pleural effusion or pneumothorax. - HOSPITAL COURSE Hospital Course: The patient was intubated in the field for airway protection because he continued to seize. Once he was in the hospital he no longer had seizures. However he was still altered. I expect that some of this was due to sedation. Due to the fact that it was late enough in the day I opted to keep the patient intubated overnight. On the morning of discharge a lighten sedation, and within an hour he was awake, responding to verbal stimuli, had a good NIF, no tachypnea, blood pressure instability and we extubated him safely. His mother was at the bedside. He let us know that he had stopped drinking 12 to 14 days before admission. But he reluctantly admitted in front of his mom that he gone back to drinking 4 days prior to admission. He had not had a drink for a day when he was seen in the clinic for his swollen legs. At this point in time his legs are nonswollen, there is no edema. 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 He may have had just pedal edema that is now resolved. I explained that I am attributing his seizure to alcohol withdrawal. Many many questions were asked by mom and all those were answered. I explained that he cannot drive for the next few months. He needs to establish himself with a PCP. If he has another episode of seizures, especially if alcohol free, he would then need to see a neurologist for an EEG and further treatment. Also warned him that he has alcoholic hepatitis if not cirrhosis. They were very alarmed about that and wondered if this was permanent. I explained that I do not know what stage he is in but I would anticipate that if he stopped drinking completely, forever, his liver will slowly heal over the next few months. Setting him home with a vitamin and thiamine to take for the next month. He did not have tachypnea, tachycardia, tremulousness. He has some stuttering. As long as I spoke slowly and clearly he understood everything I said. Mom had warned us not to speak too quickly or with too many people at the same time because his learning disability left him overwhelmed with too much input. He is discharged in stable condition. He is a short statured slender brown skin male. Temperature is 37.1. Heart rate 86. Blood pressure 139/92. Respirations 18. 96% on room air. He appears much younger than stated age. Neck is shotty adenopathy. Lungs are without labored respiration, clear to auscultation and percussion. Regular rate and rhythm. No murmurs. And abdomen that soft, nontender. He has eaten lunch and dinner. Extremities are without edema. No ataxia. Hide at discharge nursing had washed his hair to get the dried blood taken out of his hair that he suffered as a consequence of falling. There is stitches in his scalp look clean, closed, healed. I have asked him to see his PCP to get the stitches taken out. - ALLERGIES Allergies/Adverse Reactions: Allergies Allergy/AdvReac Type Severity Reaction Status Date / Time nickel [Nickel] Allergy Unknown Verified 08/22/24 13:56 - MEDICATIONS Home Medications: Ambulatory Orders Medication Instructions Recorded Confirmed Acetaminophen [Acetaminophen Extra 500 mg PO Q6HR PRN 08/23/24 08/23/24 Strength] Ibuprofen [Motrin] 600 mg PO Q6H PRN 08/23/24 08/23/24 Mv-Min/Folic/Vit K/Lut/[id number] 1 each PO DAILY 08/23/24 08/23/24 [[employer] Multivit Tb] Pnv No.121/Iron/Folic Acid 1 each PO DAILY #30 tablet 08/23/24 [ Multivitamin Tablet] Thiamine [Vitamin B-1] 100 mg PO DAILY #30 tab 08/23/24 - LABS Result Diagrams: 08/23/24 04:22 08/23/24 14:02"
== END 2024-08-23 15:08 | disposition home or self-care (01) ==
LOC: EDUNIT# → ED 13:22 → ICU 15:35
PROVIDERS: ADMIT Specialist; ATTEND Specialist
DX: F10.139 Alcohol abuse with withdrawal, unspecified (principal); G40.509 Epileptic seizures related to external causes, not intractable, without status epilepticus; K70.10 Alcoholic hepatitis without ascites; R00.0 Tachycardia, unspecified; R06.82 Tachypnea, not elsewhere classified; F81.9 Developmental disorder of scholastic skills, unspecified; E87.20 Acidosis, unspecified; S01.01XA Laceration without foreign body of scalp, initial encounter; X58.XXXA Exposure to other specified factors, initial encounter; F32.A Depression, unspecified; F41.9 Anxiety disorder, unspecified; G89.29 Other chronic pain; M54.9 Dorsalgia, unspecified; M25.512 Pain in left shoulder
CPT/HCPCS: 36415; 36600; 51702; 70450; 71045; 71260; 72125; 74177; 80048; 80053; 80076; 80143; 80179; 80306; 81001; 82077; 82330; 82550; 82607; 82746; 82803; 83605; 83690; 83735; 84100; 84132; 84443; 85025; 85610; 87150; 87633; 93005; 94002; 94003; 96361; 96365; 96366; 96367; 96368; 96375; 96376; 99291; A9270; G0378; J1170; J2250; Q9967; 81003; 87086